=== PATIENT | male | born 1980 | race African-American/Black ===

== ENCOUNTER 2019-04-11 11:24 | Emergency (ER) | payer OTHER ==
[~2019-04-11] VITALS: Ht 170.2 cm; Wt 86.4 kg
[2019-04-11] MEDS ORDERED: amlodipine (11:39)
[2019-04-11] MEDS ORDERED: PRIL20TA2 PO (11:39)
[2019-04-11] MEDS ORDERED: [UNRECOGNIZED DRUG - CODE] (11:41)
[2019-04-11] MEDS ORDERED: atorvastatin (11:41)
[2019-04-11 12:49] LABS: BASO % 0.2 % (0.0-1.0); EOS % 0.2 % (0.0-3.0); HEMATOCRIT 41.8 % (42.0-52.0); HEMOGLOBIN 13.8 g/dl (13.5-17.5); LYMPH # 1.4 10^3/uL (1.5-5.0); LYMPH % 11.5 % (24.0-44.0); MEAN CORPUSCULAR HEMOGLOBIN 28.2 pg (27.0-33.0); MEAN CORPUSCULAR VOLUME 85.3 fl (80.0-96.0); MONO # 0.7 10^3/uL (0.0-0.8); MONO % 5.6 % (0.0-5.0); NEUTROPHILS # 10.1 10^3/uL (1.5-8.5); NEUTROPHILS % 82.1 % (36.0-66.0); PLATELET COUNT, AUTOMATED 363 10^3/uL (150-450); WHITE BLOOD COUNT 12.3 10^3/uL (4.0-10.0)
[2019-04-11] MEDS ORDERED: NS 1,000 ML IV SCH (13:15)
[2019-04-11] MEDS ORDERED: ONDANSETRON 4MG/2ML VIAL (J2405) IV ONE (13:15)
[2019-04-11] MEDS ORDERED: MORPHINE 4 MG/ML 1ML VIAL/SYRINGE (J2270) IV ONE (13:15)
[2019-04-11 13:41] LABS: ALBUMIN 4.1 GM/DL (3.2-5.2); ALT/SGPT 43 U/L (12-78); BILIRUBIN,DIRECT 0.2 MG/DL (0.0-0.2); BILIRUBIN,TOTAL 0.7 MG/DL (0.2-1.0); BLOOD UREA NITROGEN 12 MG/DL (7-18); CALCIUM LEVEL 9.8 MG/DL (8.5-10.1); CARBON DIOXIDE LEVEL 29 MEQ/L (21-32); CHLORIDE LEVEL 103 MEQ/L (98-107); CREATININE FOR GFR 1.03 MG/DL (0.70-1.30); GLOMERULAR FILTRATION RATE > 60.0 (>60); GLUCOSE, FASTING 106 MG/DL (70-100); LIPASE 122 U/L (73-393); POTASSIUM SERUM 3.2 MEQ/L (3.5-5.1); SODIUM LEVEL 141 MEQ/L (136-145); TOTAL PROTEIN 7.6 GM/DL (6.4-8.2)
--- NOTE | 2019-04-11 14:13 | REP ---
CT ABDOMEN AND PELVIS WITHOUT IV OR ORAL CONTRAST: Renal stone protocol. HISTORY: Left renal colic. 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 The lung bases are clear on axial CT images. The liver and the spleen are normal in size. There is a granulomatous calcification in the left lobe of the liver. No other focal liver lesion is appreciated. No adrenal lesion is seen on either side. No abnormality is noted in the pancreas or in the gallbladder. No right renal abnormality is observed. There is moderate left-sided hydronephrosis due to a obstructive calculus in the left mid ureter at the level of the L3-4 intervertebral disc. This calculus measures 5 mm in greatest diameter. There is mild periureteral edema. No bladder calculus is seen. No right-sided hydronephrosis is noted. There is an intrarenal calculus in the upper pole of the left kidney which is a little larger than the obstructive calculus. This measures 8 mm. Normal appendix is seen in the right lower quadrant. Seminal vesicles prostate and urinary bladder are unremarkable. No abdominal wall defect or bony destructive lesion is appreciated. IMPRESSION: Moderate left-sided hydronephrosis due to an obstructive 5 mm left mid ureteral calculus. There is an 8 mm intrarenal calculus in the upper pole of the left kidney as well. Otherwise negative. Electronically Signed by Festus Acuña MD 04/11/2019 06:19 P
[2019-04-11] MEDS ORDERED: POTASSIUM CHLORIDE 10 MEQ SR TABLET PO ONE (14:15)
[2019-04-11] MEDS ORDERED: PERC5TAB12 PO (15:00)
[2019-04-11] MEDS ORDERED: ZOFR4TAB16 PO (15:00)
[2019-04-11] MEDS ORDERED: MIDAZOLAM INJ 5 MG/ML VIAL (J2250) IV ONE (15:15)
[2019-04-11 15:27] VITALS: BP 158/90
[2019-04-11] MEDS ORDERED: propofoL 1,000 MG in IV 1 EA IV SCH (16:00)
== END 2019-04-11 15:37 | disposition home or self-care (01) ==
LOC: M ED 11:24 → EDBD 11:24 → M ED 15:37
DX: N20.1 Calculus of ureter (principal); I10 Essential (primary) hypertension; K21.9 Gastro-esophageal reflux disease without esophagitis; E78.5 Hyperlipidemia, unspecified; Z79.899 Other long term (current) drug therapy
CPT/HCPCS: 74176; 80048; 80076; 81001; 83690; 85025; 96361; 96374; 96375; 99284; J2270; J2405